=== PATIENT | male | born 1995 | race Caucasian/White ===

== ENCOUNTER 2021-06-26 09:13 | Outpatient (CLI) | payer OTHER, SELFPAY ==
[2021-06-26 10:23] LABS: Sperm Present Sperm Not Present
== END 2021-06-26 09:14 | disposition home or self-care (01) ==
LOC: LAB 09:15
PROVIDERS: PCP Electrodiagnostic Medicine; Visit Provider Urology
DX: Z98.52 Vasectomy status (principal)
CPT/HCPCS: 89310